=== PATIENT | female | born 1955 | race Caucasian/White ===

== ENCOUNTER → 2022-03-16 16:25 | Outpatient (BNVA) | payer MEDICARE, SELFPAY | PROVIDERS: PCP Nurse Practitioner Adult Health; Visit Provider Psychiatry & Neurology Psychiatry | DX: F34.1 Dysthymic disorder (principal) | CPT/HCPCS: 90833; 99212 ==

== ENCOUNTER → 2022-05-24 16:44 | Outpatient (BNVA) | payer MEDICARE, SELFPAY | PROVIDERS: PCP Nurse Practitioner Adult Health; Visit Provider Psychiatry & Neurology Psychiatry | DX: F34.1 Dysthymic disorder (principal); I10 Essential (primary) hypertension; D32.0 Benign neoplasm of cerebral meninges | CPT/HCPCS: 90833; 99212 ==

== ENCOUNTER → 2022-08-24 14:23 | Outpatient (BNVA) | payer MEDICARE, SELFPAY | PROVIDERS: PCP Nurse Practitioner Adult Health; Visit Provider Psychiatry & Neurology Psychiatry | DX: F34.1 Dysthymic disorder (principal); F43.10 Post-traumatic stress disorder, unspecified; D32.0 Benign neoplasm of cerebral meninges | CPT/HCPCS: Q3014 ==

== ENCOUNTER 2022-12-28 16:19 | Outpatient (AMB) | payer MEDICARE, SELFPAY ==
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
== END 2022-12-28 16:19 | disposition home or self-care (01) ==
LOC: HO.HOP 16:19
PROVIDERS: PCP Nurse Practitioner Adult Health; Visit Provider Psychiatry & Neurology Psychiatry
DX: F34.1 Dysthymic disorder (principal); I10 Essential (primary) hypertension; D32.0 Benign neoplasm of cerebral meninges; R42 Dizziness and giddiness
CPT/HCPCS: 99214

== ENCOUNTER → 2022-12-28 16:19 | Outpatient (BNVA) | payer MEDICARE, SELFPAY | PROVIDERS: PCP Nurse Practitioner Adult Health; Visit Provider Psychiatry & Neurology Psychiatry ==

== ENCOUNTER 2023-04-03 11:23 | Outpatient (AMB) | payer MEDICARE, SELFPAY ==
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
== END 2023-04-03 11:50 | disposition home or self-care (01) ==
LOC: HO.HOP 11:23
PROVIDERS: PCP Nurse Practitioner Adult Health; Visit Provider Psychiatry & Neurology Psychiatry
DX: F34.1 Dysthymic disorder (principal); F43.10 Post-traumatic stress disorder, unspecified
CPT/HCPCS: 90833; 99213

== ENCOUNTER → 2023-04-03 11:23 | Outpatient (BNVA) | payer MEDICARE, SELFPAY | PROVIDERS: PCP Nurse Practitioner Adult Health; Visit Provider Psychiatry & Neurology Psychiatry | DX: F34.1 Dysthymic disorder (principal); F43.10 Post-traumatic stress disorder, unspecified | CPT/HCPCS: 90833; 99212 ==

== ENCOUNTER 2023-08-25 12:29 | Outpatient (AMB) | payer MEDICARE, SELFPAY ==
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
== END 2023-08-25 13:00 ==
LOC: HO.HOP 12:29
PROVIDERS: PCP Internal Medicine; Visit Provider Psychiatry & Neurology Psychiatry
DX: F43.10 Post-traumatic stress disorder, unspecified (principal); F34.1 Dysthymic disorder
CPT/HCPCS: 90833; 99213

== ENCOUNTER → 2023-08-25 12:29 | Outpatient (BNVA) | payer MEDICARE, SELFPAY | PROVIDERS: PCP Internal Medicine; Visit Provider Psychiatry & Neurology Psychiatry | DX: F43.10 Post-traumatic stress disorder, unspecified (principal); F34.1 Dysthymic disorder | CPT/HCPCS: 99212 ==

== ENCOUNTER 2023-12-20 15:36 | Outpatient (AMB) | payer MEDICARE, SELFPAY ==
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
== END 2023-12-20 16:38 | disposition home or self-care (01) ==
LOC: HO.HOP 15:36
PROVIDERS: PCP Internal Medicine; Visit Provider Psychiatry & Neurology Psychiatry
DX: F43.10 Post-traumatic stress disorder, unspecified (principal); F34.1 Dysthymic disorder
CPT/HCPCS: 90833; 99213

== ENCOUNTER → 2023-12-20 15:36 | Outpatient (BNVA) | payer MEDICARE, SELFPAY | PROVIDERS: PCP Internal Medicine; Visit Provider Psychiatry & Neurology Psychiatry | DX: F43.10 Post-traumatic stress disorder, unspecified (principal); F34.1 Dysthymic disorder | CPT/HCPCS: 99212 ==

== ENCOUNTER 2024-03-19 10:34 | Outpatient (AMB) | payer MEDICARE, SELFPAY ==
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
== END 2024-03-19 12:07 | disposition home or self-care (01) ==
LOC: HO.HOP 10:34
PROVIDERS: PCP Internal Medicine; Visit Provider Psychiatry & Neurology Psychiatry
DX: F43.10 Post-traumatic stress disorder, unspecified (principal); F34.1 Dysthymic disorder
CPT/HCPCS: 99214

== ENCOUNTER → 2024-03-19 10:34 | Outpatient (BNVA) | payer MEDICARE, SELFPAY | PROVIDERS: PCP Internal Medicine; Visit Provider Psychiatry & Neurology Psychiatry | DX: F32.A Depression, unspecified (principal); F43.10 Post-traumatic stress disorder, unspecified; F34.1 Dysthymic disorder; Z71.89 Other specified counseling | CPT/HCPCS: 99212 ==

== ENCOUNTER 2024-07-22 12:58 | Outpatient (AMB) | payer MEDICARE, SELFPAY ==
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
--- OUTSIDE RECORDS SUMMARY | 2024-07-22 14:33 | XMS_ITS ---
Author Organization [facility] [place] Address [address] [place] [address] Care Team Providers Care Corrugator Operator Name Role Phone KIA WEBB Primary Care Provider KIA WEBB Unavailable [phone] REASON FOR VISIT refill Medications Medication SIG (Take, Route, Frequency, Duration) Notes Start Date End Date Status Atorvastatin Calcium 40 MG TAKE 1 TABLET BY MOUTH EVERY DAY for 90 Active Encounters Encounter Location Date Provider Diagnosis [facility] [place] [address] [place] [address] 05/04/2023 KIA WEBB Plan Of Treatment Medication Medication Name Sig Start Date Stop Date Notes Atorvastatin Calcium 40 MG TAKE 1 TABLET BY MOUTH EVERY DAY for 90 Progress Notes * Lani GUARDADOeDOB:1955 (68 yo F)Acc No.[id number]:05/04/2023 Patient:?Dorothy Guardado :1955???Age:68 Y???Sex:Female Address:[address] [place] [id number] * Refills? Refill Atorvastatin Calcium Tablet, 40 MG, 90 Tablet, TAKE 1 TABLET BY MOUTH EVERY DAY, 90, Refills=2 * true * Date:? Generated for Radha estevez/Cassidy/eTransmitting on:?07/22/2024 02:33 PM EDT
--- OUTSIDE RECORDS SUMMARY | 2024-07-22 14:33 | XMS_ITS ---
Author Organization [facility] Address [address] [place] [address] Care Team Providers Care Nursing Techn Name Role Phone KIA WEBB Primary Care Provider KIA WEBB Unavailable [phone] DALIA WOLF [phone] REASON FOR VISIT Lipids Encounters Encounter Location Date Provider Diagnosis [facility] [address] [address] 06/01/2023 DALIA WOLF Plan Of Treatment No Information Progress Notes * Loni GUARDADOOB:1955 (69 yo F)Acc No.[id number]:06/01/2023 Progress Notes Patient:?Dorothy GUARDADO Provider:?Dalia Wolf NP :1955???Age:68 Y???Sex:Female D ate:06/01/2023 Address:[address] [place], [place] [id number] Pcp:KIA Vallejo Subjective: * Chief Complaints: * ???1. Lipids. * Medical History:? Objective: * Vitals:? Assessment: Plan: * Treatment: * Billing Information: * Visit Code:? * Procedure Codes:? * Electronic signature of MARY FORREST on 07/22/2024 at 02:33 PM EDT Sign off status: Pending * Provider:?Dalia Wolf NP Date:?06/01 Generated for Radha estevez/Cassidy/Amaliaitting on:?07/22/2024 02:33 PM EDT
--- OUTSIDE RECORDS SUMMARY | 2024-07-22 14:33 | XMS_ITS | Clinical Summary ---
Author Organization [facility] Address [address] [place] [address] Care Team Providers Care Wire Drawing Setter Name Role Phone Dalia Pastor NP Primary Care Provider [phone] Surgical History Surgery Date Site/Laterality Comments SHOULDER SURGERY 11/02/2021 Right PROCEDURE: HISTORICAL SHOULDER SURGERY; COMMENT: Rotator cuff repair with Dr. 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 ([facility]) Anxiety 10/15/2020 DX:Anxiety Age-related cataract 10/15/2020 DX:Age-rela sherri cataract Chronic frontal sinusitis 10/15/2020 DX:Chr onic frontal sinusitis Compression fracture of C4 v ertebra (CMS/HCC) 10/15/2020 DX:Compression fracture of C 4 vertebra ([facility]) Depressive disorder DX:Depressiv e disorder Social History Tobacco Use Types Packs/Day Years Used Date Smoking Tobacco: Never Smokeless Tobacco: Never Alcohol Use Standard Drinks/Week Comments Yes 0 (1 standard drink = 0.6 oz pur e alcohol) Comments Unknown Sex and Gender Information Value Date Recorded Sex Assigned at Not on file Legal Sex Female 10:24 AM EST Gender Identity Not on file Sexual Orientation Not on file Obstetrics History Last Filed Vital Signs Vital Sign Reading Time Taken Comments Blood Pressure 145/80 10/26/2022 4:03 PM EDT Pulse 80 10/26/2022 4:03 PM EDT Temperature - - Respiratory Rate - - Oxygen Saturation - - Inhaled Oxygen Concentration - - Weight 68 kg (150 lb) 10/26/2022 4:03 PM EDT Height 160 cm (5' 3 ) 10/19/2022 9:15 AM EDT Body Mass Index 26.57 10/19/2022 9:15 AM EDT Plan of Treatment Health Maintenance Due Date Last Done Comments DTaP,Tdap,and Td Vaccines (1 - Tdap) 1976 Pneumococcal Vaccine: 50+ Years (1 of 1 - PCV) 2007 Zoster Vaccines (1 of 2) 2007 Colorectal Cancer Screening: Colonoscopy 04/23/2022 Depression Screening 04/23/2022 Falls Risk Assessment 04/23/2022 Hepatitis C Screening 04/23/2022 Social Influencers of Health Screening 04/23/2022 COVID-19 Vaccine ( - 2023-2 5 season) 2024 Influenza Vaccine (#1) 2024 Breast Cancer Screening 11/09/2024 11/10/19 23, 11/02/2021 RSV Immunization Patients 60 + Years Old (1 - 1-dose 75+ series) 2032 Osteoporosis Screening (Bone Density Screening) 11/10/2032 11/10/2022 HIB Vaccines Aged Out No longer eligi ble based on patient's age to complete this topic HPV Vaccines Aged Out No longer eligi ble based on patient's age to complete this topic Hepatitis A Vaccines Aged Out No long er eligible based on patient's age to complete this topic Hepatitis B Vaccines Aged Out No long er eligible based on patient's age to complete this topic IPV Vaccines Aged Out No longer eligi ble based on patient's age to complete this topic MMR Vaccines Aged Out No longer eligi ble based on patient's age to complete this topic Meningococcal ACWY Vaccine Aged Out N o longer eligible based on patient's age to complete this topic Meningococcal B Vacine Aged Out No lo nger eligible based on patient's age to complete this topic RSV Immunization Patients Under 20 months Aged Out No longer eligible b ased on patient's age to complete this topic Varicella Vaccines Aged Out No longer eligible based on patient's age to complete this topic Procedures Procedure Name Priority Date/Time Associated Diagnosis Comments [facility] DEXA AXIAL SKELETON Routine 11/10/2022 5:02 PM EDT Other specified disorders of bone density and structure, other site [facility] SCREENING DIGITAL Routine 11/09/2022 4:51 PM EDT Encounter for screening mammogram for malignant neoplasm of breast from Last 3 Months or Most Recently Relevant to Health Maintenance Results * [facility] DEXA AXIAL SKELETON (11/10/2022 5:02 PM EDT) Anatomical Region Laterality Modality Mammography 11/09/2022 1:16 PM EDT Narrative 11/10/2022 5:[address] [facility] Diagnostic Imaging Department [address] [place] [address] Patient: ??DOROTHY GUARDADO ?/Age/Sex: 1955 - 67 - F Unit#: ??[id number] ? Location/Status: ??SPDIMAM/REG CLI ? Mnemonic/Ordering Site: ??MAMDEXAAX/SPMAM Ordering Physician: ??DALIA HUTCHINS DIRECTOR GLOBAL DEVELOPMENT [facility] Dexa Axial Skeleton - 11/09/22 - [id number] Report Status:Signed History: Low estrogen state due to menopause. Findings: Bone densitometry is performed utilizing dual energy x-ray absorptiometry (DXA) in the [employer] unit. The lumbar spine and proximal femora are evaluated in the AP projection. The FRAX questionaire was completed. The results indicate low bone mass (osteopenia), with a right femoral neck T- score of -1.9. The Z score is -0.5, indicating bone mineral density within the range of normal for age. ??The detailed DEXA report will be mailed to the referring physician's office. [employer]em[employer] FRAX: 10-year Probability of Fracture: Major Osteoporotic 10.4 percent ??Hip 1.5 percent. IMPRESSION: Osteopenia. [id number] Dictating Physician: ??CYNTHIA STEVEN MD Electronically Signed by: ??CYNTHIA STEVEN MD Dic Date/Time: ??11/10/221700 Sign date/Time: ??11/10/221701 Procedure Note Cynthia Steven MD - 06/20/2023 [facility] Diagnostic Imaging Department [address] [place] [address] Patient: DOROTHY GUARDADO D.O.B./Age/Sex: 1955 - 67 - F Unit#: [id number] [facility] Ordering Physician: DALIA HUTCHINS DIRECTOR GLOBAL DEVELOPMENT [facility] Dexa Axial Skeleton - 11/09/22 - [id number] Report Status:Signed History: Low estrogen state due to menopause. Findings: Bone densitometry is performed utilizing dual energy x-ray absorptiometry(DXA) in the [employer] unit. The lumbar spine and proximal femora areevaluated in the AP projection. The FRAX questionaire was completed. The results indicate low bone mass (osteopenia), with a right femoral neckT- score of -1.9. The Z score is -0.5, indicating bone mineral density withinthe range of normal for age. The detailed DEXA report will be mailed to the referring physician's office. [employer] FRAX: 10-year Probability of Fracture: Major Osteoporotic 10.4 percent Hip 1.5 percent. IMPRESSION: Osteopenia. [id number] Dictating Physician: CYNTHIA STEVEN MD Electronically Signed by: CYNTHIA STEVEN MD Dic Date/Time: 11/10/221700 Sign date/Time: 11/10/221701 Dalia Pastor NP IMG BI PROCEDURES Final Result * [facility] SCREENING DIGITAL (11/09/2022 4:51 PM EDT) Anatomical Region Laterality Modality Mammography 11/09/2022 1:18 PM EDT Narrative 11/09/2022 4:[address] [facility] Diagnostic Imaging Department [address] [place] [address] Patient: ??DOROTHY GUARDADO ?/Age/Sex: 1955 - 67 - F Unit#: ??[id number] ? Location/Status: ??SPDIMAM/REG CLI ? Mnemonic/Ordering Site: ??DIGSC/SPMAM Ordering Physician: ??DALIA HUTCHINS DIRECTOR GLOBAL DEVELOPMENT [facility] Screening Digital - 11/09/22 - 1402 Report Status:Signed EXAM: [facility] Screening Digital EXAM DATE AND TIME: 11/09/2022 2:02 PM HISTORY: ??Screening. Maternal great grandmother had breast carcinoma. COMPARISON: ??11/01/21, 03/28/13 TECHNIQUE: CC and MLO views of both breasts were obtained using full field digital mammography. Bilateral digital breast tomosynthesis was performed in the MLO projection. Computer aided detection with [employer] 7.2-H and [employer] 3D 3.1 was employed. TISSUE DENSITY: b. There are scattered areas of fibroglandular density. FINDINGS: No suspicious masses, grouped microcalcifications, or areas of architectural distortion are seen. Benign secretory calcifications are present bilaterally. Vascular calcification is noted. The skin is unremarkable. IMPRESSION: Stable mammographic appearance of the breasts. ??No evidence of malignancy is seen. A negative mammogram in the presence of a clinically suspicious palpable abnormality does not preclude the possibility of malignancy or alter the indications for biopsy. BI-RADS: ??Category 2: Benign RECOMMENDATION(S): 1: Routine screening mammogram BILATERAL in 1 year. 63156, 19699 3342F, 7025F Dictating Physician: ??CYNTHIA STEVEN MD Electronically Signed by: ??CYNTHIA STEVEN MD Dic Date/Time: ??11/09/22 1650 Sign date/Time: ??11/09/22 1651 Procedure Note Cynthia Steven MD - 06/20/2023 [facility] Diagnostic Imaging Department [address] [place] [address] Patient: DOROTHY GUARDADO /Age/Sex: 1955 - 67 - F Unit#: [id number] Location/Status: SPDIMAM/REG CLI Mnemonic/Ordering Site: [facility] Ordering Physician: DALIA HUTCHINS NP [facility] Screening Digital - 11/09/22 - 1402 Report Status:Signed EXAM: [facility] Screening Digital EXAM DATE AND TIME: 11/09/2022 2:02 PM HISTORY: Screening. Maternal great grandmother had breast carcinoma. COMPARISON: 11/01/21, 03/28/13 TECHNIQUE: CC and MLO views of both breasts were obtained using fullfield digital mammography. Bilateral digital breast tomosynthesis was performedin the MLO projection. Computer aided detection with 360pi 7.2-H and[employer] 3D 3.1 was employed. TISSUE DENSITY: b. There are scattered areas of fibroglandular density. FINDINGS: No suspicious masses, grouped microcalcifications, or areas ofarchitectural distortion are seen. Benign secretory calcifications are presentbilaterally. Vascular calcification is noted. The skin is unremarkable. IMPRESSION: Stable mammographic appearance of the breasts. No evidence of malignancyis seen. A negative mammogram in the presence of a clinically suspicious palpable abnormality does not preclude the possibility of malignancy or alter the indications for biopsy. BI-RADS: Category 2: Benign RECOMMENDATION(S): 1: Routine screening mammogram BILATERAL in 1 year. 12138, 89582 3342F, 7025F Dictating Physician: CYNTHIA STEVEN MD Electronically Signed by: CYNTHIA STEVEN MD Dic Date/Time: 11/09/22 165 Sign date/Time: 11/09/221650 us Dalia Pastor NP IMG BI PROCEDURES Final Result from Last 3 Months or Most Recently Relevant to Health Maintenance Care Teams Wire Drawing Setter Relationship Specialty Start Date End Date Dalia Pastor NP [address] [place] [address] [place] [address] PCP - General 10/04/22
--- OUTSIDE RECORDS SUMMARY | 2024-07-22 14:33 | XMS_ITS | Patient Health Record ---
Author Organization [facility] Address [address] [place] [address] Care Team Providers Care Pathology Teacher Name Role Phone KIA WEBB Primary Care Provider KIA WEBB Unavailable [phone] Allergies Allergen (clinical drug ingredient) Drug/Non Drug Allergy documented on EMR Reaction Allergy Type Onset Date Status BuSpar TABS (uncoded) Abdominal pain Allergy Active citalopram CeleXA TABS (uncoded) Unknown Allergy Active Effexor TABS (uncoded) Unknown Allergy Active naproxen Naprosyn TABS (uncoded) Unknown Allergy Active Reason For Referral No Information Medications Medication SIG (Take, Route, Frequency, Duration) Notes Start Date End Date Status Estrace 0.1 MG/GM one gram to genitali a twice weekly for 90 days 01/13/2020 Active Fish Oil 1000 MG Oral for 0 03/01/2013 N ot-Taking Cipro 250 MG 1 tablet Orally ever y 12 hrs for 10 day(s) 10/24/2018 Not-Taking FLUoxetine HCl 20 MG 1 tablet in the morning Orally Once a day 04/23/2010 Active Viibryd 20 MG 1 tablet with food Orally Once a day for 30 day(s) Not-Taking ALPRAZolam 0.25 MG 1/2 tablet Oral for 0 days prn 04/08/2008 Active L-Methylfolate 15 MG Orally Not-Taking Diflucan 150 MG 1 tablet Orally once a day for 1 days Not-Taking Doxepin HCl 3 MG 1 tablet at bedtime Orally Once a day Active Azithromycin 250 MG 2 tablet on the day, then 1 tablet daily for 4 days Orally DIRECTED for 5 day(s) 09/22/2021 Not-Taking Pantoprazole Sodium 40 MG TAKE 1 TABLET BY MOUTH EVERY DAY for 90 Active Nitrofurantoin Monohyd Macro 100 MG TAKE 1 CAPSULE BY MOUTH TWICE A DAY FOR 7 DAYS for 7 Active Meclizine HCl 12.5 MG TAKE 1 TABLET BY M OUTH 3 TIMES A DAY NEEDED 14 DAYS for 20 Active Atorvastatin Calcium 40 MG TAKE 1 TABLET BY MOUTH EVERY DAY for 90 Active SUMAtriptan Succinate 50 MG TAKE 1 TABLET BY MOUTH TWICE A DAY for 15 Active Azelastine HCl 0.1 % Instill 1 spray in each nostril twice daily. for 150 prn Active amLODIPine Besylate 5 MG TAKE 1 TABLET B Y MOUTH EVERY DAY for 90 Active Immunizations Vaccine Route Administration Date Status Comme nts Td (adult) preservative free Unknown 04/04/2011 Pending Tdap IM Intramuscular 04/04/2011 Administered MIG_SI D-Immuniz ation Date :04 Apr 2011 Social History Tobacco Use: Social History Observation Description Date Details (start date - stop date) Never Smoker NA - NA Tobacco Use/Smoking Question Answer Notes Are you a nonsmoker Additional Findings: Tobacco Non-User Aggressive non-smoker Alcohol Screen (Audit-C) Question Answer Notes Did you have a drink contain ing alcohol in the past year? Yes How often did you have a dri nk containing alcohol in the past year? 2 to 3 times a week (3 points) How many drinks did you have on a typical day when you were drinking in the past year? 1 or 2 drinks (0 point) How often did you have 6 or more drinks on one occasion in the past year? Never (0 point) Points 3 Interpretation Positive Tobacco use other than smoking: Question Answer Notes Are you an other tobacco user? No Section Notes: Never a smoker ETOH Weekend 2 drinks No ellicit drugs Never a smoker ETOH Weekend 2 drinks No ellicit drugs Never a smoker ETOH Weekend 2 drinks No ellicit drugs Never a smoker ETOH Weekend 2 drinks No ellicit drugs Never a smoker ETOH Weekend 2 drinks No ellicit drugs Never a smoker ETOH Weekend 2 drinks No ellicit drugs Never a smoker ETOH Weekend 2 drinks No ellicit drugs 64 yrs old with HTN, Hyperlipidemia, GERD and depression On meds States I saw her few years ago. Worked 39 yrs for [employer] and retired two years ago. Opened a Day Care at Home 2 yeas ago Has a grandson Boone 18 monts and a new grand daughter Zazueta 2 days old.Both are son Brians babies. Has 2 children , physician assistants aand friend of ricardo Jordan who is an DIRECTOR MANUFACTURING ENGINEERING for [employer] and changed to [employer] and educates doctors for a device used to control blood control during major surgeries Works out home Lives in [place] Has a son Panchito Guardado a senior cryptanalyst at [employer] is single for 6 yrs and now dating someone for 10 months Bought a new hybrid bike and plans to ride . Never a smoker ETOH Weekend 2 drinks No ellicit drugs 64 yrs old with HTN, Hyperlipidemia, GERD and depression On meds States I saw her few years ago. Worked 39 yrs for [employer] and retired two years ago. Opened a Day Care at Home 2 yeas ago Has a grandson Boone 18 monts and a new grand daughter Zazueta 2 days old.Both are son Brians babies. Has 2 children , physician assistants aand friend of ricardo Jordan who is an DIRECTOR MANUFACTURING ENGINEERING for [employer] and changed to [employer] and educates doctors for a device used to control blood control during major surgeries Works out home Lives in [place] Has a son Panchito Guardado a senior cryptanalyst at [employer] is single for 6 yrs and now dating someone for 10 months Bought a new hybrid bike and plans to ride . Never a smoker ETOH Weekend 2 drinks No ellicit drugs 64 yrs old with HTN, Hyperlipidemia, GERD and depression On meds States I saw her few years ago. Worked 39 yrs for [employer] and retired two years ago. Opened a Day Care at Home 2 yeas ago Has a grandson Boone 18 monts and a new grand daughter Zazueta 2 days old.Both are son Brians babies. Has 2 children , physician assistants aand friend of ricardo Jordan who is an DIRECTOR MANUFACTURING ENGINEERING for [employer] and changed to [employer] and educates doctors for a device used to control blood control during major surgeries Works out home Lives in [place] Has a son Panchito Guardado a senior cryptanalyst at [employer] is single for 6 yrs and now dating someone for 10 months Bought a new hybrid bike and plans to ride . Never a smoker ETOH Weekend 2 drinks No ellicit drugs 64 yrs old with HTN, Hyperlipidemia, GERD and depression On meds States I saw her few years ago. Worked 39 yrs for [employer] and retired two years ago. Opened a Day Care at Home 2 yeas ago Has a grandson Boone 18 monts and a new grand daughter Zazueta 2 days old.Both are son Brians babies. Has 2 children , physician assistants aand friend of ricardo Jordan who is an DIRECTOR MANUFACTURING ENGINEERING for [employer] and changed to [employer] and educates doctors for a device used to control blood control during major surgeries Works out home Lives in [place] Has a son Panchito Guardado a senior cryptanalyst at [employer] is single for 6 yrs and now dating someone for 10 months Bought a new hybrid bike and plans to ride . Never a smoker ETOH Weekend 2 drinks No ellicit drugs 64 yrs old with HTN, Hyperlipidemia, GERD and depression On meds States I saw her few years ago. Worked 39 yrs for [employer] and retired two years ago. Opened a Day Care at Home 2 yeas ago Has a grandson Boone 18 monts and a new grand daughter Zazueta 2 days old.Both are son Brians babies. Has 2 children , physician assistants aand friend of ricardo Jordan who is an DIRECTOR MANUFACTURING ENGINEERING for [employer] and changed to [employer] and educates doctors for a device used to control blood control during major surgeries Works out home Lives in [place] Has a son Panchito Guardado a senior cryptanalyst at [employer] is single for 6 yrs and now dating someone for 10 months Bought a new hybrid bike and plans to ride . Never a smoker ETOH Weekend 2 drinks No ellicit drugs 64 yrs old with HTN, Hyperlipidemia, GERD and depression On meds States I saw her few years ago. Worked 39 yrs for [employer] and retired two years ago. Opened a Day Care at Home 2 yeas ago Has a grandson Boone 18 monts and a new grand daughter Zazueta 2 days old.Both are son Brians babies. Has 2 children , physician assistants aand friend of ricardo Jordan who is an DIRECTOR MANUFACTURING ENGINEERING for [employer] and changed to [employer] and educates doctors for a device used to control blood control during major surgeries Works out home Lives in [place] Has a son Panchito Guardado a senior cryptanalyst at [employer] is single for 6 yrs and now dating someone for 10 months Bought a new hybrid bike and plans to ride . Never a smoker ETOH Weekend 2 drinks No ellicit drugs 64 yrs old with HTN, Hyperlipidemia, GERD and depression On meds States I saw her few years ago. Worked 39 yrs for [employer] and retired two years ago. Opened a Day Care at Home 2 yeas ago Has a grandson Boone 18 monts and a new grand daughter Zazueta 2 days old.Both are son Brians babies. Has 2 children , physician assistants aand friend of ricardo Jordan who is an DIRECTOR MANUFACTURING ENGINEERING for [employer] and changed to [employer] and educates doctors for a device used to control blood control during major surgeries Works out home Lives in [place] Has a son Panchito Guardado a senior cryptanalyst at [employer] is single for 6 yrs and now dating someone for 10 months Bought a new hybrid bike and plans to ride . Never a smoker ETOH Weekend 2 drinks No ellicit drugs 64 yrs old with HTN, Hyperlipidemia, GERD and depression On meds States I saw her few years ago. Worked 39 yrs for [employer] and retired two years ago. Opened a Day Care at Home 2 yeas ago Has a grandson Boone 18 monts and a new grand daughter Zazueta 2 days old.Both are son Brians babies. Has 2 children , physician assistants aand friend of ricardo Jordan who is an DIRECTOR MANUFACTURING ENGINEERING for [employer] and changed to [employer] and educates doctors for a device used to control blood control during major surgeries Works out home Lives in [place] Has a son Panchito Guardado a senior cryptanalyst at [employer] is single for 6 yrs and now dating someone for 10 months Bought a new hybrid bike and plans to ride . Never a smoker ETOH Weekend 2 drinks No ellicit drugs 64 yrs old with HTN, Hyperlipidemia, GERD and depression On meds States I saw her few years ago. Worked 39 yrs for [employer] and retired two years ago. Opened a Day Care at Home 2 yeas ago Has a grandson Boone 18 monts and a new grand daughter Zazueta 2 days old.Both are son Brians babies. Has 2 children , physician assistants aand friend of ricardo Jordan who is an DIRECTOR MANUFACTURING ENGINEERING for [employer] and changed to [employer] and educates doctors for a device used to control blood control during major surgeries Works out home Lives in [place] Has a son Panchito Guardado a senior cryptanalyst at [employer] is single for 6 yrs and now dating someone for 10 months Bought a new hybrid bike and plans to ride . Never a smoker ETOH Weekend 2 drinks No ellicit drugs 64 yrs old with HTN, Hyperlipidemia, GERD and depression On meds States I saw her few years ago. Worked 39 yrs for [employer] and retired two years ago. Opened a Day Care at Home 2 yeas ago Has a grandson Boone 18 monts and a new grand daughter Zazueta 2 days old.Both are son Brians babies. Has 2 children , physician assistants aand friend of ricardo Jordan who is an DIRECTOR MANUFACTURING ENGINEERING for [employer] and changed to [employer] and educates doctors for a device used to control blood control during major surgeries Works out home Lives in [place] Has a son Panchito Guardado a senior cryptanalyst at [employer] is single for 6 yrs and now dating someone for 10 months Bought a new hybrid bike and plans to ride . Never a smoker ETOH Weekend 2 drinks No ellicit drugs 64 yrs old with HTN, Hyperlipidemia, GERD and depression On meds States I saw her few years ago. Worked 39 yrs for [employer] and retired two years ago. Opened a Day Care at Home 2 yeas ago Has a grandson Boone 18 monts and a new grand daughter Zazueta 2 days old.Both are son Brians babies. Has 2 children , physician assistants aand friend of ricardo Jordan who is an DIRECTOR MANUFACTURING ENGINEERING for [employer] and changed to [employer] and educates doctors for a device used to control blood control during major surgeries Works out home Lives in [place] Has a son Panchito Guardado a senior cryptanalyst at [employer] is single for 6 yrs and now dating someone for 10 months Bought a new hybrid bike and plans to ride . Never a smoker ETOH Weekend 2 drinks No ellicit drugs 64 yrs old with HTN, Hyperlipidemia, GERD and depression On meds States I saw her few years ago. Worked 39 yrs for [employer] and retired two years ago. Opened a Day Care at Home 2 yeas ago Has a grandson Boone 18 monts and a new grand daughter Zazueta 2 days old.Both are son Brians babies. Has 2 children , physician assistants aand friend of ricardo Jordan who is an DIRECTOR MANUFACTURING ENGINEERING for [employer] and changed to [employer] and educates doctors for a device used to control blood control during major surgeries Works out home Lives in [place] Has a son Panchito Guardado a senior cryptanalyst at [employer] is single for 6 yrs and now dating someone for 10 months Bought a new hybrid bike and plans to ride . Never a smoker ETOH Weekend 2 drinks No ellicit drugs 64 yrs old with HTN, Hyperlipidemia, GERD and depression On meds States I saw her few years ago. Worked 39 yrs for [employer] and retired two years ago. Opened a Day Care at Home 2 yeas ago Has a grandson Boone 18 monts and a new grand daughter Zazueta 2 days old.Both are son Brians babies. Has 2 children , physician assistants aand friend of ricardo Jordan who is an DIRECTOR MANUFACTURING ENGINEERING for [employer] and changed to [employer] and educates doctors for a device used to control blood control during major surgeries Works out home Lives in [place] Has a son Panchito Guardado a senior cryptanalyst at [employer] is single for 6 yrs and now dating someone for 10 months Bought a new hybrid bike and plans to ride . Never a smoker ETOH Weekend 2 drinks No ellicit drugs 64 yrs old with HTN, Hyperlipidemia, GERD and depression On meds States I saw her few years ago. Worked 39 yrs for [employer] and retired two years ago. Opened a Day Care at Home 2 yeas ago Has a grandson Boone 18 monts and a new grand daughter Zazueta 2 days old.Both are son Brians babies. Has 2 children , physician assistants aand friend of ricardo Jordan who is an DIRECTOR MANUFACTURING ENGINEERING for [employer] and changed to [employer] and educates doctors for a device used to control blood control during major surgeries Works out home Lives in [place] Has a son Panchito Guardado a senior cryptanalyst at [employer] is single for 6 yrs and now dating someone for 10 months Bought a new hybrid bike and plans to ride . Never a smoker ETOH Weekend 2 drinks No ellicit drugs 64 yrs old with HTN, Hyperlipidemia, GERD and depression On meds States I saw her few years ago. Worked 39 yrs for [employer] and retired two years ago. Opened a Day Care at Home 2 yeas ago Has a grandson Boone 18 monts and a new grand daughter Carlita 2 days old.Both are son Meghan soto. Has 2 children , physician assistants aand friend of ricardo Jordan who is an DIRECTOR MANUFACTURING ENGINEERING for [employer] and changed to [employer] and educates doctors for a device used to control blood control during major surgeries Works out home Lives in [facility] [place] Has a son Panchito Guardado a senior cryptanalyst at [employer] [place] is single for 6 yrs and now dating someone for 10 months Bought a new hybrid bike and plans to ride . Problems Problem Type SNOMED Code ICD Code Onset Dates Problem Status W/U Status Risk Notes Problem Iron deficiency anemia (31290577) Iron deficiency anemia, unspecified (D50.9) Active confirmed Problem Mixed hyperlipidemia (116898983) Mixed hyperlipidemia (E78.2) Active confirmed Problem 72742471 Chronic rhinitis (J31.0) Active confirmed has been eval b y ENT. NO allergies. Told rhinitis due to weather and temp changes. Uses astelin spray prn with good control of symptoms. Problem 06293777 Chronic frontal sinusitis (J32.1) Active confirmed Problem Gastro-esophageal reflux disease without esophagitis (598074579) Gastro-esophage al reflux disease without esophagitis (K21.9) Active confirmed rare sx if accidentally eats spicy foods. using PPI only if has sx- about once a month. Problem Constipation (36613648) Constipation, unspecified (K59.00) Active confirmed Problem Spasm of back muscles (618429063) Muscle spasm of back (M62.830) Active confirmed 10/06/21 all started with lifting heavy item last week. point tenderness in right back. muscle relaxer she had at home helped. will send a few more to take as needed. advised to not drive, no alcohol. can be sedative. to take at hs when home. agrees Problem Postmenopausal bleeding (10160877) Postmenopausal bleeding (N95.0) Active confirmed Problem 45437843 Proteinuria, unspecified (R80.9) Active confirmed Problem Hyperlipidemia (87886337) Hyperlipidemia, unspecified (E78.5) Active confirmed Lipid panel elevated last visit. has been complian with med and with lower fat diet. Knowing lab results has begun taking statin daiy and greatly reduced fat in diet. cont statin and exercise. Lab this week. Problem 334735376 Rosacea (L71.9) Active confirmed Problem 036581920 Situational anxiety (F41.8) Active confirmed Sx well controlled with SSRI, managing her stressors. No panic sx. Problem Hepatomegaly (83854844) Hepatomegaly (R16.0) Active confirmed Problem 20455009 Essential hypertension (I10) Active confirmed bp at goal. no med change Problem 605255790 Meningioma (D32.9) Active confirmed [address] Rashid. repeat MRI 2019. watch and wait approach. 03/29/[address] rojas, needs reevaluation. will check MRI I and send to neurology Problem Annual health maintenance examination (99662511) Annual physical exam (Z00.00) Active confirmed Problem Fatty liver (204874236) Fatty liver disease, nonalcoholic (K76.0) Active confirmed noted on US. normal lfts. does not drink even5 etoh beverages in a week. stressed weight loss. Problem Right upper quadrant pain (988295838) Right upper quadrant abdominal pain (R10.11) Active confirmed 10/06/21 No red flags. pain subsided since last Monday. last night RUQ and tender going to her back. today only point tenderness in back. negative murphys sign. no hepatomegaly on exam/ will get abdominal U/S to rule out gallstones (strong family hx). also will show if any renal stones (low on list however nausea could be associated to this). Problem 66073285 Age-related cataract of both eyes, unspecified age-related cataract type (H25.9) Active confirmed Cataracts causing problems with night driving and with reading. Surgery planned with DR Parsons. Problem 087277738 Benign paroxysmal positional vertigo, unspecified laterality (H81.10) Active confirmed 12/20/22 Sat and explained to her and her daughter in law Gabby about the natural history of BPV, including use of meclizine and Vestibulotherapy if severe and ENT referral if needed Problem Pure hypercholesterole chip (709905944) Elevated cholesterol (E78.00) Active confirmed Problem 4011110 Acute non-recurrent pansinusitis (J01.40) Active confirmed Empiric treatment with ceftin and medrol yashira Covid negative Non Smoker Plan Of Treatment Pending Test Test Name Order Date DEXA Hip and Spine 10/16/2018 Lipid Panel 10/24/2018 MAMMOGRAM, SCREENING 05/21/2019 MAMMOGRAM, SCREENING 01/01/2016 MAMMOGRAM, SCREENING 10/16/2018 MAMMOGRAM, SCREENING 12/14/2020 Ultrasound : Abdomen, upper 01/01/2016 Bone Density 08/31/2021 MRI : Brain with and without contrast Urine Dips 10/24/2018 CBC WITH AUTO DIFF 09/29/2022 COMPREHENSIVE METABOLIC PANEL 09/29/2022 HEPATITIS C VIRUS SCREEN 09/29/2022 LIPID PROFILE 09/29/2022 URINALYSIS 09/29/2022 xr sinusus 02/27/2018 ct brain with contrast 11/13/2018 Lipid Panel 05/21/2019 Comp. Metabolic Panel (14) 05/21/2019 MICROALB/CREAT RATIO, RANDOM 01/11/2018 HgA1C 05/21/2019 Lipid Panel 01/11/2018 Comp. Metabolic Panel (14) 01/11/2018 MICROALB/CREAT RATIO, RANDOM 05/21/2019 HgA1C 01/11/2018 Lipid Panel 08/07/2020 Comp. Metabolic Panel (14) 08/07/2020 HgA1C 08/07/2020 Future Test Test Name Order Date Measles/Mumps/Rubella Immunity 8 HEPATITIS A B PROFILE 06/15/2017 VARICELLA ZOSTER ANTIBODY IGM 06/15/2017 COVID-19 (NOVEL CORONAVIRUS), RNA 2019 Iron and TIBC 11/29/2019 CBC 11/29/2019 CBC 12/14/2020 COMPREHENSIVE METABOLIC PANEL 12/14/2020 LIPID PROFILE 12/14/2020 LIPID PANEL 08/31/2021 Insurance Providers Payer Name Payer Address Payer Phone Subscriber Number Group Number Insured Name Patient Relationship to Insured Coverage Start Date Coverage End Date [employer] [facility] [address] [place] [address] [id number] Dorothy Guaraddo Self - patient is the insured Medical (General) History Medical History History ICD Code , Acute Sinusitis , constipa tion , Guillain-Ford Syndrome , iron deficiency , mononeuritis , Chronic sinusitis, unspecified J32.9 Otitis media, unspecified, unspecified e ar H66.90 Surgical History Surgery Date(Month/Year) Colonoscopy Fiberoptic 10/30/2015 Gynecologic Services Intrauterine Device IUD Insertion 10/30/2015 Integumentary Procedures Blepharoplasty 10/30/2015 right shoulder artroscopic r otator cuff repair, subacromial decompression distal clavicle resection and glenohumeral debridement. 11/02/2021
--- OUTSIDE RECORDS SUMMARY | 2024-07-22 14:34 | XMS_ITS ---
Author Organization [facility] Address [address] [place] [address] Care Team Providers Care Hazardous Materials Waste Technician Name Role Phone KIA WEBB Primary Care Provider [phone] KIA WEBB Unavailable [phone] REASON FOR VISIT please advice Encounters Encounter Location Date Provider Diagnosis [facility] [address] [place] [address] 02/13/2023 KIA WEBB Plan Of Treatment No Information Progress Notes * Loni GUARDADOOB:1955 (67 yo F)Acc No.[id number]:02/13/2023 Patient:?Dorothy Guardado :1955???Age:67 Y???Sex:Female Address:[address] [place] [id number] * true * Date:? Generated for Printi ng/Fagabinog/eTransmitting on:?07/22/2024 02:33 PM EDT
== END 2024-07-22 15:20 | disposition home or self-care (01) ==
LOC: HO.HOP 12:58
PROVIDERS: PCP Internal Medicine; Visit Provider Psychiatry & Neurology Psychiatry
DX: F34.1 Dysthymic disorder (principal)
CPT/HCPCS: 90833; 99213

== ENCOUNTER → 2024-07-22 12:58 | Outpatient (BNVA) | payer MEDICARE, SELFPAY | PROVIDERS: PCP Internal Medicine; Visit Provider Psychiatry & Neurology Psychiatry | DX: F34.1 Dysthymic disorder (principal) | CPT/HCPCS: 99212 ==

== ENCOUNTER 2024-12-04 10:41 | Outpatient (AMB) | payer MEDICARE, SELFPAY ==
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
--- OUTSIDE RECORDS SUMMARY | 2024-12-04 11:42 | XMS_ITS | Clinical Summary ---
Author Organization [facility] Address [address] [place] [address] Care Team Providers Care Doctor Of Naprapathy Name Role Phone Malorie Pastora ROBERT Primary Care Provider [phone] Surgical History Surgery Date Site/Laterality Comments SHOULDER SURGERY 11/02/2021 Right PROCEDURE: HISTORICAL SHOULDER SURGERY; COMMENT: Rotator cuff repair with Dr. Montgomery Medical History Medical History Date Comments Diet-controlled type 2 diabe sylvia mellitus ([facility] V24, [facility] V28) 10/15/2020 DX:Diet-controlled type 2 diabetes mellitus (HCC) Essential hypertension 10/15/2020 DX:Essent ial hypertension Hyperlipidemia 10/15/2020 DX:Hyperlipidemi a Gastro-esophageal reflux dis ease without esophagitis 10/15/2020 DX:Gastro-esophageal reflux disease without esophagitis Benign neoplasm of cerebral meninges ([facility] V24, [facility] V28) 10/15/2020 DX:Benign neoplasm of cereb ral meninges (HCC) Iron deficiency anemia 10/15/2020 DX:Iron d eficiency anemia 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/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 ([facility]) Anxiety 10/15/2020 DX:Anxiety Age-related cataract 10/15/2020 DX:Age-rela sherri cataract Chronic frontal sinusitis 10/15/2020 DX:Chr onic frontal sinusitis Compression fracture of C4 v ertebra ([facility] V24, [facility] V28) 10/15/2020 DX:Compression fracture of C4 vertebra ([facility]) Depressive disorder DX:Depressiv e disorder Social [...] 2) 2007 Colorectal Cancer Screening: Colonoscopy 04/23/2022 Falls Risk Assessment 04/23/2022 Hepatitis C Screening 04/23/2022 Social Influencers of Health Screening 04/23/2022 COVID-19 Vaccine (1 - 2023-2 5 season) 2024 Depression Screening 05/15/2024 Breast Cancer Screening 11/09/2024 11/10/19 23, 11/02/2021 Influenza Vaccine (#1) 2025 RSV Immunization Adult Patients (1 - 1-dose 75+ series) 2032 Osteoporosis [...] age to complete this topic Meningococcal B Vaccine Aged Out No l onger eligible based on patient's age to complete this topic RSV Immunization Patients Under 20 months Aged Out No longer eligible b ased on patient's age to complete this topic Varicella Vaccines Aged Out No longer eligible based on patient's age to complete this topic Procedures Procedure Name Priority Date/Time Associated Diagnosis Comments [facility] DEXA AXIAL SKELETON Routine 11/10/2022 5:02 PM EDT Other specified disorders of bone density and structure, other site [facility] SCREENING DIGITAL Routine 11/09/2022 4:51 PM EDT Encounter for screening mammogram for malignant neoplasm of breast from Last 3 Months or Most Recently Relevant to Health Maintenance Results * [facility] DEXA AXIAL SKELETON (11/10/2022 5:02 PM EDT) Anatomical Region Laterality Modality Mammography 11/09/2022 1:16 PM EDT Narrative 11/10/2022 5:02 PM EDT [facility] Diagnostic Imaging Department [address] [place] [address] Patient: ABRAM GUARDADO /Age/Sex: 1955 - 67 - F Unit#: [id number] Location/Status: [facility] CLI [facility]em[facility] Ordering Physician: DALIA HUTCHINS AUTOMOBILE INSPECTOR [facility] Dexa Axial Skeleton - 11/09/22 - 1091 Report Status:Signed History: Low estrogen state due to menopause. Findings: Bone densitometry is performed utilizing dual energy x-ray absorptiometry (DXA) in the Aut[employer] unit. The lumbar spine and proximal femora are evaluated in the AP projection. The FRAX questionaire was completed. The results indicate low bone mass (osteopenia), with a right femoral neck T- score of -1.9. The Z score is -0.5, indicating bone mineral density within the range of normal for age. The detailed DEXA report will be mailed to the referring physician's office. [employer]emur FRAX: 10-year Probability of Fracture: Major Osteoporotic 10.4 percent Hip 1.5 percent. IMPRESSION: Osteopenia. [id number] Dictating Physician: CYNTHIA STEVEN MD Electronically Signed by: CYNTHIA STEVEN MD Dic Date/Time: 11/10/221700 Sign date/Time: 11/10/221701 Procedure Note Cynthia Steven MD - 06/20/2023 [facility] Diagnostic Imaging Department [address] [place] [address] Patient: ABRAM GUARDADO /Age/Sex: 1955 - 67 - F Unit#: [id number] [facility] Ordering Physician: DALIA HUTCHINS AUTOMOBILE INSPECTOR [facility] Dexa Axial Skeleton - 11/09/22 - 9879 Report Status:Signed History: Low estrogen state due to menopause. Findings: Bone densitometry is performed utilizing dual energy x-ray absorptiometry(DXA) in the [employer] unit. The lumbar spine and proximal femora [...] 10.4 percent Hip 1.5 percent. IMPRESSION: Osteopenia. [id number] Dictating Physician: CYNTHIA STEVEN MD Electronically Signed by: CYNTHIA STEVEN MD Dic Date/Time: 11/10/221700 Sign date/Time: 11/10/221701 us Dalia Pastor NP IMG BI PROCEDURES Final Result * [facility] SCREENING DIGITAL (11/09/2022 4:51 PM EDT) Anatomical Region Laterality Modality Mammography 11/09/2022 1:18 PM EDT Narrative 11/09/2022 4:51 PM EDT [facility] Diagnostic Imaging Department [address] [place] [address] Patient: ABRAM GUARDADO D.O.B./Age/Sex: 1955 - 67 - F Unit#: [id number] Location/Status: [facility]REG CLI Mnemonic/Ordering Site: [facility] Ordering Physician: DALIA HUTCHINS NP [facility] Screening Digital - 11/09/22 - 1402 Report Status:Signed EXAM: [facility] Screening Digital EXAM DATE AND TIME: 11/09/2022 2:02 PM HISTORY: Screening. Maternal great grandmother had breast carcinoma. COMPARISON: 11/01/21, 03/28/13 TECHNIQUE: CC and MLO views of both breasts were obtained using full field digital mammography. Bilateral digital breast tomosynthesis was performed in the MLO projection. Computer aided detection with [employer] 7.2-H and [employer] 3D 3.1 was employed. TISSUE DENSITY: b. There are scattered areas of fibroglandular density. FINDINGS: No suspicious masses, grouped microcalcifications, or areas of architectural distortion are seen. Benign secretory calcifications are present bilaterally. Vascular calcification is noted. The skin is unremarkable. IMPRESSION: Stable mammographic appearance of the breasts. No evidence of malignancy is seen. A negative mammogram in the presence of a clinically suspicious palpable abnormality does not preclude the possibility of malignancy or alter the indications for biopsy. BI-RADS: Category 2: Benign RECOMMENDATION(S): 1: Routine screening mammogram BILATERAL in 1 year. 09196, 23935 3342F, 7025F Dictating Physician: CYNTHIA STEVEN MD Electronically Signed by: CYNTHIA STEVEN MD Dic Date/Time: 11/09/221649 Sign date/Time: 11/09/221650 Procedure Note Cynthia Steven MD - 06/20/2023 [facility] Diagnostic Imaging Department [address] [place] [address] Patient: GEOABRAM Meli/Age/Sex: 1955 - 67 - F Unit#: [id number] Location/Status: [facility] CLI Mnemonic/Ordering [facility] Ordering Physician: DALIA HUTCHINS NP [facility] Screening Digital - 11/09/22 - 1402 Report Status:Signed EXAM: [facility] Screening Digital EXAM DATE AND TIME: 11/09/2022 2:02 PM HISTORY: Screening. Maternal great grandmother had breast carcinoma. COMPARISON: 11/01/21, 03/28/13 TECHNIQUE: CC and MLO views of both breasts were obtained using fullfield digital mammography. Bilateral digital breast tomosynthesis was performedin the MLO projection. Computer aided detection with [employer] 7.2-H andIpselex 3D 3.1 was employed. TISSUE DENSITY: b. [...] Routine screening mammogram BILATERAL in 1 year. 57981, 29543 3342F, 7025F Dictating Physician: CYNTHIA STEVEN MD Electronically Signed by: CYNTHIA STEVEN MD Dic Date/Time: 11/09/22 1650 Sign date/Time: 11/09/22 165 Dalia Pastor NP IMG BI PROCEDURES Final Result from Last 3 Months or Most Recently Relevant to Health Maintenance Care Teams Doctor Of Naprapathy Relationship Specialty Start Date End Date Dalia Pastor NP PCP - General 10/04/22
== END 2024-12-04 17:15 | disposition home or self-care (01) ==
LOC: HO.HOP 10:41
PROVIDERS: PCP Internal Medicine; Visit Provider Psychiatry & Neurology Psychiatry
DX: F43.12 Post-traumatic stress disorder, chronic (principal); F34.1 Dysthymic disorder; I42.9 Cardiomyopathy, unspecified; D32.0 Benign neoplasm of cerebral meninges; I10 Essential (primary) hypertension; E78.00 Pure hypercholesterolemia, unspecified
CPT/HCPCS: 99214

== ENCOUNTER → 2024-12-04 10:41 | Outpatient (REF) | payer MEDICARE, SELFPAY ==
--- NOTE | 2024-12-04 12:00 | ECG_ITS ---
Test Reason : CARDIOMYOPATHY Blood Pressure : */* mmHG Vent. Rate : 76 BPM Atrial Rate : 76 BPM P-R Int : 186 ms QRS Dur : 82 ms QT Int : 430 ms P-R-T Axes : 14 -31 9 degrees QTcB Int : 483 ms Normal sinus rhythm Left axis deviation Septal infarct , age undetermined Abnormal ECG No previous ECGs available Referred By: Emigdio Sabillon Electronically Signed By: Caleb Beauchamp
== END ==
LOC: HO.CARD 10:41
PROVIDERS: PCP Internal Medicine; Visit Provider Psychiatry & Neurology Psychiatry
DX: I10 Essential (primary) hypertension (principal); D32.0 Benign neoplasm of cerebral meninges; F34.1 Dysthymic disorder; F43.12 Post-traumatic stress disorder, chronic; F41.9 Anxiety disorder, unspecified; I42.9 Cardiomyopathy, unspecified; G47.00 Insomnia, unspecified; E78.00 Pure hypercholesterolemia, unspecified; Z79.899 Other long term (current) drug therapy
CPT/HCPCS: 93005; 99212

== ENCOUNTER → 2024-12-04 12:00 | Outpatient (BNV) | payer MEDICARE, SELFPAY | PROVIDERS: PCP Internal Medicine; Visit Provider Internal Medicine Cardiovascular Disease | DX: R94.31 Abnormal electrocardiogram [ECG] [EKG] (principal); I42.9 Cardiomyopathy, unspecified | CPT/HCPCS: 93010 ==

== ENCOUNTER 2025-03-17 10:57 | Outpatient (AMB) | payer MEDICARE, SELFPAY ==
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
== END 2025-03-17 14:35 | disposition home or self-care (01) ==
LOC: HO.HOP 10:57
PROVIDERS: PCP Internal Medicine; Visit Provider Psychiatry & Neurology Psychiatry
DX: F34.1 Dysthymic disorder (principal); F43.10 Post-traumatic stress disorder, unspecified; I10 Essential (primary) hypertension; I42.9 Cardiomyopathy, unspecified
CPT/HCPCS: 99213

== ENCOUNTER → 2025-03-17 10:57 | Outpatient (BNVA) | payer MEDICARE, SELFPAY | PROVIDERS: PCP Internal Medicine; Visit Provider Psychiatry & Neurology Psychiatry | DX: F33.1 Major depressive disorder, recurrent, moderate (principal); F43.10 Post-traumatic stress disorder, unspecified; I10 Essential (primary) hypertension; I42.9 Cardiomyopathy, unspecified | CPT/HCPCS: 99212 ==